=== PATIENT | male | born 1985 | race Caucasian/White ===

== ENCOUNTER 2024-03-06 15:07 | Emergency (ER) | payer MEDICAID, SELFPAY ==
[2024-03-06] VITALS (33 sets, daily range): BP systolic 115–150; BP diastolic 82–100; PULSE 82–116; RESP 14–34; TEMP 36.8–37; O2SAT 89–94
--- NOTE | 2024-03-06 15:45 | RT.EKG_ITS ---
APPROVED REPORT Exam: Resting ECG Reason for Exam: R sided CP, SOB Patient Location: E HR:97 bpm ECG Measurements Heart Rate 97 AXIS ME 177 P 23 QRSd 86 QRS 47 QT 339 T 55 QTc 431 Conclusion Sinus rhythm...normal P axis, V-rate 60- [address] segment or T wave abnormalities to suggest occlusive [place]
--- NOTE | 2024-03-06 15:55 | W.ED.GENAD ---
Discharge Plan Disposition Patient Disposition: Home Condition: Stable Discharge Details Clinical Impression: Rib pain on right side, Respiratory infection Primary Care Provider: None,None ED Provider: Ronald Salinas Home Meds and New Rx's Prescriptions: New amoxicillin-pot clavulanate 875-125 mg tablet 1 tab PO BID 5 Days Qty: 10 0RF Discharge Instructions Instructions: Bacterial Upper Respiratory Infection, Adult, Albuterol, Amoxicillin and Clavulanate, Chest Pain, Adult ED Additional Instructions: You were seen in the emergency department for your cough since mid December, you have attempted treatment with azithromycin and this is failed to improve, your extensive workup is negative for any cardiac pathology, negative for pneumonia, negative for blood clot of the lungs. I suspect you have a significant pulled muscle of the rib cage called costochondritis, please purchase [id number] Voltaren a topical anti-inflammatory gel to rub on area of pain, you may also raise the area with a large pillow during coughing fits in place gentle heat on the area to help relax the muscles between the ribs. Please use therapeutic dosing of Tylenol (acetamenophen) & Advil (ibuprofen) in an alternating fashion as follows: Take 1000mg of Tylenol every 6 hours without missing doses- that is 4 times per day. [place] in between the Tylenol dosings, take 400-600mg of Advil also on a 6 hour schedule, that is also 4 times per day. The daily maximum dosing of Tylenol is 4000mg, and the daily maximum dosing of Advil is 2400mg. This is safe to do for weeks. Please note that some common cold medications & prescription pain medications may contain acetamenophen and you need to read OTC drug labels and factor that in to maximum daily dosings. I have sent an antibiotic called Augmentin into your pharmacy in [place] to attempt relief as you have had this respiratory infection for almost 2 months. Please return for any acute worsening of chest pain, any coughing up of blood, any intractable nausea or vomiting or any other emergent concern Discharge Data Discharge Date/Time-TO BE ENTERED AT DEPARTURE: 03/06/24 22:05 HPI General Date/Time Provider Initiated Documentation: 03/06/24 15:08. HPI Narrative: 39 year-old male presents to ED today by POV/ambulating with his mother with a chief complaint of ongoing respiratory illness since mid, with worsening today in his R lower lungs/ribs after a coughing fit- felt like a rib popped, has been noted to have worsening since [place] time. Quality described as R sided rib/chest pain, mild low O2 at home, no radiation to hemoptysis, abdominal pain, nausea/vomiting, urine/bowel changes, headache, profound lethargy, states he had a negative Covid test around [place]. Severity is described as severe. Palliating factors include has been given meds by [facility] without relief. Provoking factors include deep breathing, coughing. Events leading up to the incident/Associated Symptoms: Patient denies any known medical history, denies cardiac history, clotting disorders in family. Patient not anticoagulated. Related Data Home Medications ?Medication ?Instructions ?Recorded ?Confirmed amoxicillin 875 mg-potassium 1 tab PO BID bronchitis 5 days #10 03/06/24 clavulanate 125 mg tablet tabs Previous Rx's ?Medication ?Instructions ?Recorded amoxicillin 875 mg-potassium 1 tab PO BID bronchitis 5 days #10 03/06/24 clavulanate 125 mg tablet tabs Allergies Allergy/AdvReac Type Severity Reaction Status Date / Time No Known Allergies Allergy Verified 03/06/24 15:47 General Stated Complaint: RespSymp NATHALIA: 3 Review of Systems All systems reviewed & are unremarkable except as noted in HPI and below Exam Narrative Exam Narrative: GENERAL APPEARANCE: Well-nourished, non-toxic, awake and alert, atraumatic, no acute distress. SKIN: Warm, pink, dry, intact, without rashes/lesions/ulcerations. HEAD: Normocephalic, atraumatic, normal hair distribution for gender/age. EYES: Normal conjunctiva, no exudates on lids/lashes. ENT: Nares patent, no circumoral cyanosis, no facial swelling NECK: Supple, trachea midline, painless cervical ROM. LUNGS/CHEST: Lungs CTA bilaterally, non-labored respirations, normal A/P diameter, symmetrical expansion, no chest wall deformity, R lower rib tenderness without crepitus or flail segment HEART (CV/PV): Regular rate and rhythm without murmur, no peripheral edema, no JVD. ABDOMEN: Soft, non-distended, no guarding, RUQ tenderness without overt Mendoza's sign. MSK: Normal ROM, no swelling/deformity to bilateral UEs or LEs, moving all extremities without weakness, no cyanosis, spine midline without tenderness, normal curvature. NEURO: Mental Status AAOx4 - alert to person, place, time, events No facial droop, no forehead involvement. Motor: No focal weakness - strength 5/5 in bilateral UEs and LEs, proximal and distal, symmetric. Sensory: sensation intact to light touch globally. Gait normal: patient ambulated without ataxia into ED room. PSYCH: euthymic, cooperative, pleasant, appropriate speech Course Vital Signs Vital signs: Vital Signs Temperature 36.8 C 03/06/24 15:43 Pulse 109 H 03/06/24 15:43 Respiratory Rate 20 03/06/24 15:43 Blood Pressure 115/83 03/06/24 15:43 Pulse Oximetry 92 03/06/24 15:43 Temperature 36.8 C 03/06/24 15:43 Pulse 109 H 03/06/24 15:43 Respiratory Rate 20 03/06/24 15:43 Blood Pressure 115/83 03/06/24 15:43 Pulse Oximetry 92 03/06/24 15:43 Oxygen Delivery Method Room Air 03/06/24 15:43 Oxygen Flow Rate 0 03/06/24 15:43 Pain Level 8 03/06/24 15:43 Medical Decision Making This dictation utilizes [id number] dictation software and may contain unedited grammatical errors. 39 year-old male presents to ED today by POV/ambulating with his mother with a chief complaint of ongoing respiratory illness since mid-December, with worsening today in his R lower lungs/ribs after a coughing fit- felt like a rib popped, has been noted to have worsening since [place] time. Quality described as R sided rib/chest pain, mild low O2 at home, no radiation to hemoptysis, abdominal pain, nausea/vomiting, urine/bowel changes, headache, profound lethargy, states he had a negative Covid test around . Severity is described as severe. Palliating factors include has been given meds by [facility] without relief. Provoking factors include deep breathing, coughing. Events leading up to the incident/Associated Symptoms: Patient denies any known medical history, denies cardiac history, clotting disorders in family. Patients' medical history: States no medical history whatsoever. Family and social history: Denies tobacco use, denies illicit substance use, no recent travel, no sick contacts. Pertinent exam findings / vital signs include right lower rib pleuritic severe chest pain without crepitus or flail segment, no Mendoza sign to abdomen, lungs CTA diffusely, tachycardic. Differential / pathologies of concern include pneumonia, PE, costochondritis, renal colic, biliary colic, ACS, displaced rib. Diagnostic studies of: -CBC, CMP, troponin, UA, lipase, EKG, CTA chest PE study, CT ABD/pelvis without contrast. -CBC shows no leukocytosis -CMP shows no actionable abnormality -Lipase negative -Serial troponins negative -UA benign -EKG without S1Q3T3, no signs of STEMI -CT ABD/pelvis without contrast is negative for any renal stone or gallstone pathology -CTA was a suboptimal study, I did reflex a D-dimer which was positive at 958 -Had to perform a second CTA which was negative for PE Interventions of: -Tylenol, Toradol, albuterol inhaler to go, Rx for Augmentin for empiric pneumonia treatment. ED Course/Assessment/Plan: 39-year-old male has had a cough for well over a month, has trialed azithromycin by [facility] not having right lower rib pain, CTA is negative for pulmonary embolism, he had to have to perform due to poor contrast timing and inability to rule out PE with a positive D-dimer of 958. The patient likely has an element of pleurisy or costochondritis but also may have been undertreated for bacterial lung infection planning to cover him with Augmentin for trial of relief, I did send him home with an albuterol inhaler for symptomatic shortness of breath relief as well as recommended topical Voltaren to his areas of pain. Counseled the patient on negative workup for PE and strict return criteria for any acute worsening despite treatment. Findings not consistent with PE, hypoxic respiratory failure, sepsis, ACS. Disposition of respiratory infection. Patient verbalized understanding of the plan and return to ED criteria and engaged in shared decision making. Medical Records Medical records reviewed: Yes I reviewed the patient's medical records. Imaging Data Radiologic Study: Attestation: I personally reviewed and interpreted this imaging study as follows: Imaging: CT Scan Radiologist's impression: EXAM: CT CHEST PE CTA CLINICAL HISTORY: mild hypoxia R sided CP w inspiration. TECHNIQUE: Imaging Protocol: CT angiography of the chest was performed using pulmonary embolus protocol. Multi planar reconstructions were performed. CONTRAST MATERIAL: Intravenous: Omnipaque 350 Contrast volume: 100 cc COMPARISON: No exams were available for comparison FINDINGS: CHEST: PULMONARY ARTERIES: There is suboptimal bolus timing. Majority of the contrast is in the thoracic aorta. There are no filling defects within the main pulmonary arteries. No filling defects within the proximal 2nd generation vessels but more distally cannot exclude the presence of pulmonary emboli with high accuracy due to insufficient opacification of the distal pulmonary arterial tree on both sides. LUNGS: There is platelike atelectasis evident in the right middle lobe and lingular segment of the left lung. Mild infiltrates noted bilaterally in the lower lobes basal segments, specifically posterior basal segments both sides and there are no associated pleural effusions. No findings in the superior segments of both lower lobes. No findings in the trachea and mainstem bronchi.. MEDIASTINUM: There is no hilar nor mediastinal adenopathy. Partially visualized thyroid unremarkable. CARDIAC: Heart size is upper normal. There is no pericardial effusion.Caliber of the thoracic aorta is within normal limits. No evidence of aortic dissection. There is no significant shift of the interventricular septum. PARTIALLY VISUALIZED UPPERMOST ABDOMEN: Liver is quite hypodense implying severe steatosis. Also liver enlargement. There no discrete focal hepatic lesions evident. Spleen size normal. No adrenal masses. No ascites. OSSEOUS: No significant osseous lesions.. IMPRESSION: 1. Suboptimal bolus timing makes evaluation of segmental pulmonary arteries not possible. There are no central pulmonary emboli evident..No pulmonary infarction. 2. There is mild infiltrate in the posterior basal segments of both lower lobes. Also some atelectasis in the right middle lobe and lingula are segment of the left lung. There are no pleural effusions. 3. No evidence of aortic dissection nor pericardial effusion. Radiologic Study #2: Attestation: I personally reviewed and interpreted this imaging study as follows: Imaging: CT Scan Radiologist's impression: EXAM: CT ABDOMEN PELVIS WO CLINICAL HISTORY: RUQ pain- renal colic vs biliary colic vs rib pain. TECHNIQUE: Imaging Protocol: Axial computed tomography images with coronal and sagittal reformatted images were created and reviewed CONTRAST MATERIAL: Intravenous: none Oral: None COMPARISON: No exams were available for comparison FINDINGS: VISUALIZED LUNG BASES: There is mild subpleural infiltrate in the posterior basal segments of both lower lobes. No associated pleural effusions.. ABDOMEN: There is no ascites. LIVER: Liver is profoundly hypodense implying severe steatosis. Liver is also mildly enlarged. There are no intra hepatic lesions nor dilatation of intrahepatic ducts. GALLBLADDER/BILIARY: No obvious gallbladder pathology. CBD is not dilated. PANCREAS: No evidence of pancreatic mass nor dilatation of the pancreatic duct. SPLEEN: Spleen is not enlarged. No obvious intrasplenic lesions. ADRENALS: There are no significant adrenal masses. KIDNEYS:No cysts evident. No solid renal masses. No calculi nor hydronephrosis. . ABDOMINAL AORTA: Abdominal aorta is not enlarged. LYMPH NODES: There is no retroperitoneal nor paraaortic adenopathy. ABDOMINAL WALL: No evidence of significant anterior abdominal wall nor inguinal hernia. GI: There is no evidence of bowel obstruction, free air, nor abscess. PELVIS: LYMPH NODES: There is no intrapelvic nor inguinal adenopathy. GI: No evidence of appendicitis.No evidence of sigmoid diverticular disease. URINARY BLADDER: Mild uniform thickening of the urinary bladder wall. Either related to cystitis or under distension. REPRODUCTIVE: Prostate size upper normal. Seminal vesicles unremarkable. OSSEOUS: No significant osseous lesions. Chronic disc space narrowing at L5-S1 level noted. No listhesis. No pars defects. Other disc spaces exhibit normal height. IMPRESSION: 1. Severe hepatic steatosis and mild-moderate hepatomegaly. No ascites. No splenomegaly. 2. Mild uniform thickening of the urinary bladder wall either related to cystitis or under distension. Recommend urinalysis. Findings called by myself to ER provider 03/06/2024 at 7:10 p.m. Radiologic Study #3: Attestation: I personally reviewed and interpreted this imaging study as follows: Imaging: CT Scan Radiologist's impression: Exam: CTA Chest With Contrast Exam date and time: 03/06/2024 8:32 PM Age: 39 years old Clinical indication: D-dimer elevated TECHNIQUE: Imaging protocol: Computed tomographic angiography of the chest with contrast. Exam focused on the arteries. 3D rendering (Not supervised by radiologist): MIP and/or 3D reconstructed images were created by the technologist. Contrast material: 350; Contrast volume: 70 ml; Contrast route: INTRAVENOUS (IV); COMPARISON: CT CHEST PE CTA 03/06/2024 6:12 PM FINDINGS: Pulmonary arteries: No evidence of acute pulmonary embolism. Aorta: Normal caliber thoracic aorta without dissection or aneurysm. Lungs: No acute alveolar or ground glass infiltrate. Areas of linear parenchymal scarring or subsegmental collapse / atelectasis in each lung. Pleural spaces: No pleural fluid collection. No pneumothorax. Heart: No right ventricular strain. No pericardial effusion. Lymph nodes: No enlarged lymph nodes. Liver: Liver fatty infiltration. Bones/joints: Unremarkable for patient age. Soft tissues: Gynecomastia. IMPRESSION: 1. No evidence of acute pulmonary embolism. 2. No acute pulmonary infiltrate or pleural fluid collection. 3. Areas of linear parenchymal scarring or subsegmental collapse / atelectasis in each lung. Dictated and Authenticated by: Steven Rodney MD. Lab Data Lab results reviewed: Yes I reviewed the patient's lab results. Labs: Laboratory Tests Range/Units 03/06/24 03/06/24 03/06/24 16:21 17:50 18:38 WBC (4.4-10.8) 10^3/uL 8.97 RBC (4.36-5.78) 10^6/uL 4.92 Hgb (13.5-17.5) g/dL 14.9 Hct (40.0-50.0) % 44.7 MCV (80-95) fL 91 MCH (27.0-33.0) pg 30.3 MCHC (32.0-36.0) % 33.3 RDW (11.8-14.1) % 12.9 Plt Count (130-400) 10^3/uL 261 MPV (8.0-11.0) fL 8.4 Immature Gran % % 0.3 Neutrophils % % 57.5 Lymphocytes % % 29.9 Monocytes % % 6.6 Eosinophils % % 5.0 Basophils % % 0.7 Nucleated RBC % (0.0-0.3) % 0.0 Absolute Neutrophils (1.2-6.7) 10^3/uL 5.16 Absolute Lymphocytes (1.2-3.4) 10^3/uL 2.68 Absolute Monocytes (0.1-0.8) 10^3/uL 0.59 Absolute Eosinophils (0.0-0.7) 10^3/uL 0.45 Absolute Basophils (0.0-0.2) 10^3/uL 0.06 D-Dimer (<500) ng/mlFEU 958 H Sodium (136-145) mmol/L 143 Potassium (3.5-5.1) mmol/L 3.6 Chloride (98-107) mmol/L 105 Carbon Dioxide (21.0-32.0) mmol/L 29.7 Anion Gap (3-11) mmol/L 8.3 BUN (7-18) mg/dL 9 Creatinine (0.70-1.30) mg/dL 1.1 Est GFR (CKD-EPI 2020) (mL/min/1.73m2) 87.57 Glucose (74-106) mg/dL 105 Calcium (8.5-10.1) mg/dL 9.4 Total Bilirubin (0.2-1.0) mg/dL 0.31 AST (15-37) U/L 34 ALT (16-63) U/L 77 H Alkaline Phosphatase (46-116) U/L 83 Troponin I (<or=76) ng/L 10 9 Total Protein (6.4-8.2) g/dL 7.6 Albumin (3.4-5.0) g/dL 3.3 L Lipase (<78) U/L 24 Urine Color (Yellow) Yellow Urine Clarity (Clear) Clear Urine pH (5-8) 5.5 Ur Specific [place] (1.005-1.025) 1.015 Urine Protein (Neg-Trace) mg/dL Negative Urine Ketones (Negative) mg/dL Negative Urine Blood (Negative) Negative Urine Nitrite (Negative) Negative Urine Bilirubin (Negative) Negative Urine Urobilinogen (Up to 0.2) mg/dL 0.2 Ur Leukocyte Esterase (Negative) Negative Urine Glucose (Negative) mg/dL Negative Quality:SDOH Health Related Social Needs: No Data to Display PFSH All Active Problems (Updated 03/06/24 @ 21:51 by KAREN Guzman) Respiratory infection (Acute) Rib pain on right side (Acute) Social History Smoking/Tobacco Use Status: Never Smoking risk assessment performed?: Yes Alcohol Intake: never Substance use type: marijuana Housing: house
--- NOTE | 2024-03-06 15:59 | DI.CT_ITS ---
Exam(s) CT CHEST PE CTA EXAM: CT CHEST PE CTA CLINICAL HISTORY: mild hypoxia R sided CP w inspiration. TECHNIQUE: Imaging Protocol: CT angiography of the chest was performed using pulmonary embolus radha col. Multi planar reconstructions were performed. CONTRAST MATERIAL: Intravenous: Omnipaque 350 Contrast volume: 100 cc COMPARISON: No exams were available for comparison FINDINGS: CHEST: PULMONARY ARTERIES: There is suboptimal bolus timing. Majority of the contrast is in the thoracic ao rta. There are no filling defects within the main pulmonary arteries. No filling defects within the proximal 2nd generation vessels but more distally cannot exclude the presence of pulmonary emboli wi th high accuracy due to insufficient opacification of the distal pulmonary arterial tree on both side s. LUNGS: There is platelike atelectasis evident in the right middle lobe and lingular segment of the le ft lung. Mild infiltrates noted bilaterally in the lower lobes basal segments, specifically posterio r basal segments both sides and there are no associated pleural effusions. No findings in the superi or segments of both lower lobes. No findings in the trachea and mainstem bronchi.. MEDIASTINUM: There is no hilar nor mediastinal adenopathy. Partially visualized thyroid unremarkable. CARDIAC: Heart size is upper normal. There is no pericardial effusion.Caliber of the thoracic aorta is within normal limits. No evidence of aortic dissection. There is no significant shift of the inte rventricular septum. PARTIALLY VISUALIZED UPPERMOST ABDOMEN: Liver is quite hypodense implying severe steatosis. Also dagoberto er enlargement. There no discrete focal hepatic lesions evident. Spleen size normal. No adrenal ma sses. No ascites. OSSEOUS: No significant osseous lesions.. IMPRESSION: 1. Suboptimal bolus timing makes evaluation of segmental pulmonary arteries not possible. There are no central pulmonary emboli evident..No pulmonary infarction. 2. There is mild infiltrate in the posterior basal segments of both lower lobes. Also some atelectas is in the right middle lobe and lingula are segment of the left lung. There are no pleural effusions . 3. No evidence of aortic dissection nor pericardial effusion. RADIATION DOSE DELIVERED: 154.94mGy.cm Total DLP DATA REPOSITORY: All CT scans at this facility are submitted to the National Radiology Data Registry (NRDR) Dose Index Registry (DIR) with the [employer] (ACR). RADIATION OPTIMIZATION: All CT scans at this facility use at least one of these dose optimization te chniques: automated exposure control; mA and/or kV adjustment per patient size (includes targeted exa ms where dose is matched to clinical indication); or iterative reconstruction.
--- NOTE | 2024-03-06 16:00 | DI.CT_ITS ---
Exam(s) CT ABDOMEN PELVIS WO EXAM: CT ABDOMEN PELVIS WO CLINICAL HISTORY: RUQ pain- renal colic vs biliary colic vs rib pain. TECHNIQUE: Imaging Protocol: Axial computed tomography images with coronal and sagittal reformatted images were created and reviewed CONTRAST MATERIAL: Intravenous: none Oral: None COMPARISON: No exams were available for comparison FINDINGS: VISUALIZED LUNG BASES: There is mild subpleural infiltrate in the posterior basal segments of both lo wer lobes. No associated pleural effusions.. ABDOMEN: There is no ascites. LIVER: Liver is profoundly hypodense implying severe steatosis. Liver is also mildly enlarged. Ther e are no intra hepatic lesions nor dilatation of intrahepatic ducts. GALLBLADDER/BILIARY: No obvious gallbladder pathology. CBD is not dilated. PANCREAS: No evidence of pancreatic mass nor dilatation of the pancreatic duct. SPLEEN: Spleen is not enlarged. No obvious intrasplenic lesions. ADRENALS: There are no significant adrenal masses. KIDNEYS:No cysts evident. No solid renal masses. No calculi nor hydronephrosis. . ABDOMINAL AORTA: Abdominal aorta is not enlarged. LYMPH NODES: There is no retroperitoneal nor paraaortic adenopathy. ABDOMINAL WALL: No evidence of significant anterior abdominal wall nor inguinal hernia. GI: There is no evidence of bowel obstruction, free air, nor abscess. PELVIS: LYMPH NODES: There is no intrapelvic nor inguinal adenopathy. GI: No evidence of appendicitis.No evidence of sigmoid diverticular disease. URINARY BLADDER: Mild uniform thickening of the urinary bladder wall. Either related to cystitis or under distension. REPRODUCTIVE: Prostate size upper normal. Seminal vesicles unremarkable. OSSEOUS: No significant osseous lesions. Chronic disc space narrowing at L5-S1 level noted. No listhesis. No pars defects. Other disc space s exhibit normal height. IMPRESSION: 1. Severe hepatic steatosis and mild-moderate hepatomegaly. No ascites. No splenomegaly. 2. Mild uniform thickening of the urinary bladder wall either related to cystitis or under distension . Recommend urinalysis. Findings called by myself to ER provider 03/06/2024 at 7:10 p.m. RADIATION DOSE DELIVERED: 799.17mGy.cm Total DLP DATA REPOSITORY: All CT scans at this facility are submitted to the National Radiology Data Registry (NRDR) Dose Index Registry (DIR) with the [employer] (ACR). RADIATION OPTIMIZATION: All CT scans at this facility use at least one of these dose optimization te chniques: automated exposure control; mA and/or kV adjustment per patient size (includes targeted exa ms where dose is matched to clinical indication); or iterative reconstruction.
[2024-03-06 16:31] LABS: Abs Immature Grans 0.03 10^3/uL (0.0-0.06); Absolute Basophil Count 0.06 10^3/uL (0.0-0.2); Absolute Eosinophil Count 0.45 10^3/uL (0.0-0.7); Absolute Lymphocyte Count 2.68 10^3/uL (1.2-3.4); Absolute Monocyte Count 0.59 10^3/uL (0.1-0.8); Absolute Neutrophil Count 5.16 10^3/uL (1.2-6.7); Basophils % 0.7 %; HCT 44.7 % (40.0-50.0); HGB 14.9 g/dL (13.5-17.5); Immature Grans % 0.3 %; Lymphocytes % 29.9 %; MCH 30.3 pg (27.0-33.0); MCHC 33.3 % (32.0-36.0); MCV 91 fL (80-95); MPV 8.4 fL (8.0-11.0); Monocytes % 6.6 %; Neutrophils % 57.5 %; Platelet Count 261 10^3/uL (130-400); RBC 4.92 10^6/uL (4.36-5.78); RDW 12.9 % (11.8-14.1); RDW-SD 43.4 fL; WBC 8.97 10^3/uL (4.4-10.8)
[2024-03-06] MEDS: Ketorolac 15 MG/ML VIAL IVP (16:42)
[2024-03-06] MEDS: ACETAMINOPHEN 1,000 MG/100 ML BTL 400 MG (16:43)
[2024-03-06 16:55] LABS: ALT 77 U/L (16-63); AST 34 U/L (15-37); Albumin 3.3 g/dL (3.4-5.0); Alkaline Phosphatase 83 U/L (46-116); Anion Gap 8.3 mmol/L (3-11); BUN 9 mg/dL (7-18); Bilirubin, Total 0.31 mg/dL (0.2-1.0); CO2 29.7 mmol/L (21.0-32.0); CREATININE 1.1 mg/dL (0.70-1.30); Chloride 105 mmol/L (98-107); Estimated GFR 87.57 (mL/min/1.73m2); Glucose 105 mg/dL (74-106); Lipase 24 U/L (<78); Potassium 3.6 mmol/L (3.5-5.1); Sodium 143 mmol/L (136-145); Total Protein 7.6 g/dL (6.4-8.2); Troponin I 10 ng/L (<or=76)
[2024-03-06 17:00] LABS: Calcium 9.4 mg/dL (8.5-10.1)
[2024-03-06] MEDS: Omnipaque 350 MG/ML 100 ML BTL IJ ×2 (18:13→20:43)
[2024-03-06 18:14] LABS: Troponin I 9 ng/L (<or=76)
[2024-03-06] MEDS: Normal Saline - Diluent 50 ML VIAL IJ ×2 (18:14→20:43)
[2024-03-06 18:48] LABS: Bilirubin Negative (Negative); Blood Negative (Negative); Clarity Clear (Clear); Glucose Negative (Negative); Ketones Negative (Negative); Leukocyte Esterase Negative (Negative); Nitrite Negative (Negative); Specific Gravity 1.015 (1.005-1.025); Urobilinogen 0.2 mg/dL (Up to 0.2); pH 5.5 (5-8)
[2024-03-06 19:48] LABS: D-Dimer 958 ng/mlFEU (<500)
--- NOTE | 2024-03-06 20:00 | DI.CT_ITS ---
Exam(s) CT CHEST PE CTA EXAM: CT CHEST PE CTA CLINICAL HISTORY: needs another CTA with good contrast timing. TECHNIQUE: Imaging Protocol: Axial CT angiography was performed with multi-slice acquisition and mu lti-planar and/or 3D reconstructions. Lung Computer Aided Detection (CAD) was utilized. CONTRAST MATERIAL: Intravenous: Omnipaque 350 contrast volume:70 mL COMPARISON: CT CT CHEST PE CTA from 03/06/2024 FINDINGS: Tracheobronchial tree: Patent where visualized. No bronchiectasis. Pulmonary parenchyma: There are areas of atelectasis seen in the lung bases bilaterally. No focal co nsolidations are seen. No pulmonary nodules are present. Pulmonary Arteries: No evidence of filling defect to suggest pulmonary emboli. Mediastinum and [place]: No dominant adenopathy or fluid collection. The esophagus is unremarkable. Visualized thyroid gland: Unremarkable. Pleura: No effusion or pneumothorax. Heart: The heart is not dilated. No coronary artery calcifications are seen. No pericardial effusion. Aorta: Thoracic aorta non-dilated. No evidence of dissection. Upper abdomen: There is fatty infiltration of the liver. Soft tissues: Mild gynecomastia. Bones: Within normal limits for the patient's age. IMPRESSION: 1. No evidence of pulmonary embolism, thoracic aortic dissection or aneurysm. 2. Atelectasis in the dependent portions of the lungs. RADIATION DOSE DELIVERED: 144mGy.cm Total DLP DATA REPOSITORY: All CT scans at this facility are submitted to the National Radiology Data Registry (NRDR) Dose Index Registry (DIR) with the [employer] ([employer]). RADIATION OPTIMIZATION: All CT scans at this facility use at least one of these dose optimization te chniques: automated exposure control; mA and/or kV adjustment per patient size (includes targeted exa ms where dose is matched to clinical indication); or iterative reconstruction.
--- NOTE | 2024-03-06 21:45 | DI.VRAD_ITS ---
PROCEDURE INFORMATION: Exam: CTA Chest With Contrast Exam date and time: 03/06/2024 8:32 PM Age: 39 years old Clinical indication: D-dimer elevated TECHNIQUE: Imaging protocol: Computed tomographic angiography of the chest with contrast. Exam focused on the arteries. 3D rendering (Not supervised by radiologist): MIP and/or 3D reconstructed images were created by the technologist. Contrast material: 350; Contrast volume: 70 ml; Contrast route: INTRAVENOUS (IV); COMPARISON: CT CHEST PE CTA 03/06/2024 6:12 PM FINDINGS: Pulmonary arteries: No evidence of acute pulmonary embolism. Aorta: Normal caliber thoracic aorta without dissection or aneurysm. Lungs: No acute alveolar or ground glass infiltrate. Areas of linear parenchymal scarring or subsegmental collapse / atelectasis in each lung. Pleural spaces: No pleural fluid collection. No pneumothorax. Heart: No right ventricular strain. No pericardial effusion. Lymph nodes: No enlarged lymph nodes. Liver: Liver fatty infiltration. Bones/joints: Unremarkable for patient age. Soft tissues: Gynecomastia. IMPRESSION: 1. No evidence of acute pulmonary embolism. 2. No acute pulmonary infiltrate or pleural fluid collection. 3. Areas of linear parenchymal scarring or subsegmental collapse / atelectasis in each lung. Dictated and Authenticated by: Steven Rodney MD. Ordering:JAELYN Cardenas MD
[2024-03-06] MEDS: Albuterol HFA 8 GM 60 PUFF INH IH (21:59)
[2024-03-06] MEDS: Inhaler, Assist Device 1 EACH MC (22:00)
--- NOTE | 2024-03-07 08:48 | NUR.NOTE ---
Access chart to reconcile EKG orders with EKG's in [facility]. EKG needs to be read, order in Active status. Nursing Note:
== END 2024-03-06 22:05 | disposition home or self-care (01) ==
PROVIDERS: Emergency Provider Physician Assistant
DX: J06.9 Acute upper respiratory infection, unspecified (principal); R07.81 Pleurodynia
CPT/HCPCS: 71275; 80053; 83690; 93005; 96374; 99285; 74176; 81003; 84484; 85025; 85379; 93010; J0131; J1885; J3490